=== PATIENT | male | born 1965 | race Hispanic/Latino ===

== ENCOUNTER 2022-03-04 06:25 | Observation (INO) | payer BC, OTHER ==
[2022-03-02 16:04] LABS: BASOPHILS # (AUTO) 0.1 (0.0-0.1); BASOPHILS % 1.3 % (0.0-1.0); EOSINOPHILS # (AUTO) 0.6 (0.0-0.4); EOSINOPHILS % 9.5 % (0.0-6.0); HEMATOCRIT 40.8 % (38.2-49.6); HEMOGLOBIN 13.4 g/dL (14.0-18.0); LYMPHOCYTES # (AUTO) 1.4 (1.0-3.2); LYMPHOCYTES % 21.8 % (18.0-39.1); MEAN CORPUSCULAR HEMOGLOBIN 31.2 pg (28-32); MEAN CORPUSCULAR HGB CONC 32.8 g/dL (31-35); MEAN CORPUSCULAR VOLUME 95.1 fL (81-99); MONOCYTES # (AUTO) 0.5 (0.2-0.8); MONOCYTES % 7.4 % (4.4-11.3); NEUTROPHILS # (AUTO) 3.8 (2.1-6.9); NEUTROPHILS % 59.5 % (38.7-80.0); PLATELET COUNT 193 x10e3/uL (140-360); RED BLOOD COUNT 4.29 x10e6/uL (4.3-5.7); RED CELL DISTRIBUTION WIDTH 13.5 % (11.7-14.4)
[2022-03-02 16:15] LABS: INR 0.94; PROTHROMBIN TIME 13.4 seconds (11.9-14.5)
[2022-03-02 16:16] LABS: PARTIAL THROMBOPLASTIN TIME 35.2 seconds (23.8-35.5)
[2022-03-02 16:21] LABS: CALCIUM 8.6 mg/dL (8.4-10.2); CREATININE, SERUM 1.21 mg/dL (0.72-1.25)
[~2022-03-04 06:25] MED LIST: DAPSONE100 MG PO; PROMETHAZINE HC25 M1 PO; PROTONIX20 MG PO
[2022-03-04] MEDS ORDERED: THROMBIN FOR SOLN 5,000 UNIT VIAL ONE (06:44)
[2022-03-04] MEDS ORDERED: LIDOCAINE 2% /EPINEPHRINE 20 ML SDV INJ ONE ×2 (06:44→09:21)
[2022-03-04] MEDS ORDERED: Vancomycin IV 1 GM VIAL ONE (06:44)
[2022-03-04] MEDS ORDERED: SUGAMMADEX SODIUM 200 MG/2 ML VIAL IV ONE (10:18)
[2022-03-04] MEDS ORDERED: HYDROCODON-ACE1 EA12 PO (10:18)
[2022-03-04] MEDS ORDERED: MAGNESIUM/ALUMINUM/SIMETHICONE 30 ML UDC PO PRN (10:30)
[2022-03-04] MEDS ORDERED: ZOLPIDEM TARTRATE 5 MG TAB PO PRN (10:30)
[2022-03-04] MEDS ORDERED: ACETAMINOPHEN 325 MG TAB PO PRN (10:30)
[2022-03-04] MEDS ORDERED: ONDANSETRON HCL INJ 2MG/ML 2ML 2 MG/ML VIAL IV PRN (10:30)
[2022-03-04] MEDS ORDERED: HYDROMORPHONE 2MG/ML 2 MG/ML ML IV PRN (10:30)
[2022-03-04] MEDS ORDERED: PROMETHAZINE HCL 25 MG TAB PO SCH (10:30)
[2022-03-04] MEDS ORDERED: Morphine 4mg INJECTION 4 MG/ML INJ IM PRN (10:30)
[2022-03-04] MEDS ORDERED: CARISOPRODOL 350 MG TAB PO PRN (10:30)
[2022-03-04] MEDS ORDERED: FENTANYL CITRATE/PF 100MCG/2 ML INJ ONE ×2 (11:04→13:48)
[2022-03-04] MEDS ORDERED: Morphine 2mg Syringe 2 MG/ML SYR ONE (11:35)
[2022-03-04] MEDS ORDERED: HYDROMORPHONE 1MG/1ML INJ ONE (12:09)
[2022-03-04] MEDS: OXYCODONE/ACETAMINOPHEN 5-325 1 EACH TABLET PO PRN (13:42)
[2022-03-04] MEDS: LACTATED RINGER'S 1,000 ML IV SCH ×2 (13:42→21:20)
[2022-03-04] MEDS ORDERED: MIDAZOLAM HCL 2 MG/2 ML VIAL ONE (13:48)
[2022-03-04] MEDS ORDERED: DEXAMETHASONE SOD PHOS INJ 4 MG/ML SDV ONE (14:11)
[2022-03-04] MEDS ORDERED: SEVOFLURANE INHAL SOLN 250 ML PEN BTL ONE (14:11)
[2022-03-04] MEDS ORDERED: PROPOFOL IV EMULSION 10 MG/ML 20 ML VIAL ONE (14:11)
[2022-03-04] MEDS ORDERED: NEOSTIGMINE 1 MG/ML 10ML VIAL ONE (14:11)
[2022-03-04] MEDS ORDERED: ONDANSETRON HCL INJ 2MG/ML 2ML 2 MG/ML VIAL ONE (14:11)
[2022-03-04] MEDS ORDERED: LIDOCAINE HCL 2% LOCAL INJ 5 ML SDV VIAL INJ ONE (14:11)
[2022-03-04] MEDS ORDERED: GLYCOPYRROLATE INJ 0.2 MG/ML VIAL ONE (14:11)
[2022-03-04] MEDS ORDERED: POVIDONE IODINE 0.05% 0.05 % ML PO ONE (14:11)
[2022-03-04] MEDS ORDERED: ROCURONIUM BROMIDE 10 MG/ML 5ML VIAL IV ONE (14:11)
[2022-03-04 15:17] VITALS: BP 148/89
[2022-03-04 16:06] VITALS: BP 143/89
[2022-03-04] MEDS: PANTOPRAZOLE SOD 40 MG TABEC PO SCH (17:10)
[2022-03-04 20:26] VITALS: BP 138/85
[2022-03-04 20:40] VITALS: BP 138/85
[2022-03-05 00:26] VITALS: BP 152/87
[2022-03-05] MEDS: PROMETHAZINE HCL (IM) 25 MG/ML VIAL IM PRN ×2 (02:00→06:53)
[2022-03-05] MEDS: OXYCODONE/ACETAMINOPHEN 5-325 1 EACH TABLET PO PRN ×2 (02:00→09:30)
[2022-03-05 04:00] VITALS: BP 119/77
[2022-03-05] MEDS: LACTATED RINGER'S 1,000 ML IV SCH (05:40)
[2022-03-05 08:00] VITALS: BP 137/86
[2022-03-05 08:44] VITALS: BP 137/86
[2022-03-05] MEDS: PANTOPRAZOLE SOD 40 MG TABEC PO SCH (08:59)
[2022-03-05] MEDS ORDERED: DAPSONE 25 MG TAB PO SCH (09:00)
== END 2022-03-05 01:36 | disposition home or self-care (01) ==
LOC: OR 06:25 → PACU V 10:17 → MED/SURG 12:22
PROVIDERS: ADMIT Neurological Surgery; ATTEND Neurological Surgery
DX: M51.17 Intervertebral disc disorders with radiculopathy, lumbosacral region (principal); Z01.810 Encounter for preprocedural cardiovascular examination; Z01.812 Encounter for preprocedural laboratory examination; Z01.818 Encounter for other preprocedural examination; Z20.822 Contact with and (suspected) exposure to COVID-19; Z91.02 Food additives allergy status; K21.9 Gastro-esophageal reflux disease without esophagitis; D64.9 Anemia, unspecified; L65.9 Nonscarring hair loss, unspecified
CPT/HCPCS: 0223U; 36415; 63047; 71046; 72020; 80048; 85025; 85610; 85730; 86850; 86900; 88304; 93005; 96360; 96361; G0378 ×2; J0690 ×2; J1100; J1170 ×2; J2001 ×2; J2250; J2270; J2405; J2550; J2704; J2710; J3010; J3370; J7121; S0164 ×2

== ENCOUNTER → 2022-04-21 | Outpatient (RCR) | payer OTHER ==
[~2022-04-21] MED LIST changes: +HYDROCODON-ACE1 EA12 PO
== END ==
LOC: PT 03-23 09:59
PROVIDERS: ATTEND Neurological Surgery
DX: M51.17 Intervertebral disc disorders with radiculopathy, lumbosacral region (principal); M54.50 Low back pain, unspecified; M53.86 Other specified dorsopathies, lumbar region
CPT/HCPCS: 97010 ×5; 97110 ×7; 97161; G0283 ×2

== ENCOUNTER 2022-05-20 16:00 | Outpatient (RCR) | payer OTHER | END 2022-05-21 | LOC: PT 16:00 | PROVIDERS: ATTEND Neurological Surgery | DX: M51.17 Intervertebral disc disorders with radiculopathy, lumbosacral region (principal); M54.50 Low back pain, unspecified; M53.86 Other specified dorsopathies, lumbar region ==

== ENCOUNTER 2024-04-01 19:22 | Emergency (ER) | payer OTHER ==
[~2024-04-01] VITALS: Ht 172.7 cm; Wt 80.3 kg
[2024-04-01 19:30] VITALS: PULSE 92; RESP 18; TEMP 98.7; O2SAT 100
[2024-04-01] MEDS: TETANUS/DIPHTHERIA TOX ADULT 0.5 ML SYR IM ONE (19:48)
[2024-04-01] MEDS: LIDOCAINE HCL 1% LOCAL INJ 20 ML VIAL INJ STA (19:48)
[2024-04-01] MEDS ORDERED: CEPHALEXIN500 MG PO (20:11)
[2024-04-01] MEDS ORDERED: BACITRACIN ZINC 0.9GM TP ONE (20:44)
== END 2024-04-01 20:45 | disposition home or self-care (01) ==
LOC: ER 19:26
DX: S61.217A Laceration without foreign body of left little finger without damage to nail, initial encounter (principal); W27.1XXA Contact with garden tool, initial encounter; Y93.H2 Activity, gardening and landscaping; Y92.89 Other specified places as the place of occurrence of the external cause
CPT/HCPCS: 12002; 90471; 90714; 99283; J2001